=== PATIENT | male | born 1945 | race Caucasian/White ===

== ENCOUNTER → 2016-11-28 | Outpatient (CLI) | payer MEDICARE ==
[~2016-11-28] MED LIST: AMIO20TA PO; AMIO400T PO; ASPI1TAB PO; ASPI325T PO; ASPI81TA85 PO; CART120C PO; CART240C PO; CRES40TA PO; DOXY10CA PO; ELIQ5TAB PO; FISH100049 PO; HYDR-3713 PO; HYDR25TAB PO; KLOR1TAB69 PO; LEVO175T2 PO; LEVO200T4 PO; LIDO5DIS36 TD; LISI-538 PO; LISI10TA4 PO; LISI40TAB PO; LOPR1TAB6 PO; METO100T PO; METO50TA2 PO; NEXI40CA PO; OMEP20CA3 PO; POTA10CA PO; SOMA350T PO; VITA50003 PO; ZOLO100T PO
[2016-11-28 18:11] LABS: ALBUMIN 3.9 GM/DL (3.2-5.2); ALBUMIN/GLOBULIN RATIO 1.34 (1.00-1.93); BILIRUBIN,DIRECT 0.2 MG/DL (0.0-0.2); BILIRUBIN,TOTAL 0.6 MG/DL (0.2-1.0); TOTAL PROTEIN 6.8 GM/DL (6.4-8.2)
== END ==
LOC: M SMT 13:02
PROVIDERS: ATTEND Internal Medicine Cardiovascular Disease
DX: R06.00 Dyspnea, unspecified (principal); I48.91 Unspecified atrial fibrillation

== ENCOUNTER → 2017-03-09 | Outpatient (CLI) | payer MEDICARE ==
[~2017-03-09] MED LIST changes: -CART240C PO; +CART240C3 PO; +KEFL500C17 PO; -LIDO5DIS36 TD; +LIDO5DIS41 TD; -METO100T PO; +METO100T5 PO; -METO50TA2 PO; +METO50TA7 PO; +NORC1TAB4 PO; +VITA1CAP40 PO; -VITA50003 PO
[2017-03-09 18:15] LABS: INR 1.04
[2017-03-20 00:06] LABS: BENZODIAZEPINES, URINE SCREEN Negative ng/mL (Cutoff=200); METHADONE, URINE SCREEN Negative ng/mL (Cutoff=300); OPIATES, URINE Positive ng/mL (Cutoff=300); pH, URINE 5.4 (4.5-8.9)
== END ==
LOC: M SMT 13:28
PROVIDERS: ATTEND Physical Medicine & Rehabilitation
DX: Z01.812 Encounter for preprocedural laboratory examination (principal); M47.816 Spondylosis without myelopathy or radiculopathy, lumbar region; M51.36 Other intervertebral disc degeneration, lumbar region; M48.07 Spinal stenosis, lumbosacral region

== ENCOUNTER 2017-03-12 14:54 | Emergency (ER) | payer MEDICARE ==
[~2017-03-12] VITALS: Ht 177.8 cm; Wt 122.7 kg
[~2017-03-12 14:54] MED LIST changes: -KEFL500C17 PO; -NORC1TAB4 PO
[2017-03-12] MEDS ORDERED: ADACEL/BOOSTRIX VACCINE (DIPHTH/PERTUSS/ACELL/TETANUS)0.5ML SYR (90715) IM ONE (15:15)
[2017-03-12] MEDS ORDERED: NORCO, ANEXSIA 5/325MG TABLET (HYDROcodone/ACETAMINOPHEN) PO ONE (15:15)
[2017-03-12] MEDS ORDERED: LIDOCAINE 1% MDV 20ML VIAL IM ONE ×2 (15:30)
[2017-03-12] MEDS ORDERED: CEPHALEXIN 500 MG CAP PO ONE (15:30)
--- NOTE | 2017-03-12 15:46 | REP ---
Left hand series: Four views. History: Table saw injury. Findings: Four views of the left hand demonstrate an open somewhat comminuted fracture of the middle phalanx of the ring finger with soft tissue swelling and irregularity. There is also bone missing from the distal tuft of the small finger consistent with an open fracture of this digit. A small chip fracture and radiolucent defect is seen in the middle phalanx of the long finger along its ulnar aspect. There are numerous opaque debris fragments in or on the skin of the proximal phalanges of the ring and small finger. There is also a triangular metallic foreign body in the dorsal soft tissues between the distal first and second metacarpals. Impression: Open fractures of the middle phalanges of the long and ring finger and the distal phalanx of the small finger. Opaque debris in or on the skin of the ring and small fingers. Possibly old metallic foreign body at the dorsal aspect of the web space between the first and second digits. Signed by Srinivasa Dunne MD 03/12/2017 04:58 P
[2017-03-12] MEDS ORDERED: KEFL500C17 PO (17:29)
[2017-03-12] MEDS ORDERED: NORC1TAB4 PO (17:29)
[2017-03-12 17:45] VITALS: BP 113/60
== END 2017-03-12 17:50 | disposition home or self-care (01) ==
LOC: M ED 14:54
DX: S61.211A Laceration without foreign body of left index finger without damage to nail, initial encounter (principal); S61.213A Laceration without foreign body of left middle finger without damage to nail, initial encounter; S61.215A Laceration without foreign body of left ring finger without damage to nail, initial encounter; S61.217A Laceration without foreign body of left little finger without damage to nail, initial encounter; S62.620B Displaced fracture of middle phalanx of right index finger, initial encounter for open fracture; S62.621B Displaced fracture of middle phalanx of left index finger, initial encounter for open fracture; S62.637B Displaced fracture of distal phalanx of left little finger, initial encounter for open fracture; S66.193A Other injury of flexor muscle, fascia and tendon of left middle finger at wrist and hand level, initial encounter; S66.195A Other injury of flexor muscle, fascia and tendon of left ring finger at wrist and hand level, initial encounter; W27.0XXA Contact with workbench tool, initial encounter; Y92.019 Unspecified place in single-family (private) house as the place of occurrence of the external cause; Y93.H3 Activity, building and construction; Y99.8 Other external cause status; I25.10 Atherosclerotic heart disease of native coronary artery without angina pectoris; Z79.899 Other long term (current) drug therapy; Z79.82 Long term (current) use of aspirin; Z88.8 Allergy status to other drugs, medicaments and biological substances

== ENCOUNTER → 2017-05-14 | Outpatient (REF) | payer MEDICARE ==
[~2017-05-14] MED LIST changes: +KEFL500C17 PO; +NORC1TAB4 PO
== END ==
LOC: M LAB REF 18:04
DX: T81.4XXD Infection following a procedure, subsequent encounter (principal); Y82.9 Unspecified medical devices associated with adverse incidents

== ENCOUNTER → 2017-11-08 | Outpatient (CLI) | payer MEDICARE | LOC: M RAD 16:20 | DX: N28.1 Cyst of kidney, acquired (principal) | CPT/HCPCS: 76775 ==

== ENCOUNTER → 2018-12-05 | Outpatient (CLI) | payer MEDICARE ==
[~2018-12-05] MED LIST changes: +AMIO200T PO; +AMIO200T22 PO; -AMIO20TA PO; -AMIO400T PO; +AMIO400T7 PO; +ASPI-1 PO; -ASPI1TAB PO; -ASPI325T PO; +ASPI81TA26 PO; +CLON0.5T8 PO; -DOXY10CA PO; +DOXY1TAB33 PO; +HYDR-2541 PO; -HYDR25TAB PO; +KLOR10TA76 PO; +LEVA750T7 PO; +LEVO200T31 PO; +LISI40TA52 PO; -LISI40TAB PO; +METO1TAB7 PO; -NORC1TAB4 PO; +NORC1TAB7 PO; +PANT40TA3 PO; +PERCOCET PO; -POTA10CA PO; +SPIR-10 PO; +SUCR1TA PO; -VITA1CAP40 PO; +VITA50005 PO
[2018-12-05 17:23] LABS: ALBUMIN 3.4 GM/DL (3.2-5.2); BILIRUBIN,DIRECT 0.8 MG/DL (0.0-0.2); BILIRUBIN,TOTAL 1.9 MG/DL (0.2-1.0); CALCIUM LEVEL 8.9 MG/DL (8.8-10.2); CREATININE FOR GFR 1.35 MG/DL (0.70-1.30); POTASSIUM SERUM 4.2 MEQ/L (3.5-5.1); TOTAL PROTEIN 6.4 GM/DL (6.4-8.2)
[2018-12-05 17:27] LABS: BASO % 0.2 % (0.0-1.0); HEMOGLOBIN 14.1 g/dl (13.5-17.5); LYMPH # 0.7 10^3/uL (1.5-4.5); LYMPH % 6.7 % (24.0-44.0); MEAN CORPUSCULAR HEMOGLOBIN 29.1 pg (27.0-33.0); MEAN CORPUSCULAR HGB CONC 32.8 g/dl (32.0-36.5); MEAN CORPUSCULAR VOLUME 88.8 fl (80.0-96.0); MONO # 0.7 10^3/uL (0.0-0.8); NEUTROPHILS # 8.4 10^3/uL (1.8-7.7); NEUTROPHILS % 85.6 % (36.0-66.0); PLATELET COUNT, AUTOMATED 197 10^3/uL (150-450); RED BLOOD COUNT 4.84 10^6/uL (4.30-6.10); WHITE BLOOD COUNT 9.8 10^3/uL (4.0-10.0)
== END ==
LOC: M SMT 15:14
PROVIDERS: ATTEND Internal Medicine Cardiovascular Disease
DX: R10.9 Unspecified abdominal pain (principal)

== ENCOUNTER → 2018-12-05 | Outpatient (CLI) | payer MEDICARE ==
--- NOTE | 2018-12-05 11:53 | REP ---
Clinical: Chest and abdominal pain. Rule out pneumoperitoneum . Comparison: 11/28/2016 . Findings: The mediastinum and cardiac silhouette are stable and within normal limits for portable technique. Evidence for sternotomy and CABG. The lung ramirez are clear without acute consolidation, effusion, or pneumothorax. Skeletal structures are intact. Impression: No acute cardiopulmonary process appreciated. Electronically Signed by Alberto Toledo MD 12/05/2018 11:44 A
== END ==
LOC: M RAD 11:04
PROVIDERS: ATTEND Surgery
DX: R10.9 Unspecified abdominal pain (principal)

== ENCOUNTER → 2018-12-17 | Outpatient (CLI) | payer MEDICARE ==
[~2018-12-17] MED LIST changes: -OMEP20CA3 PO; +OMEP20CA4 PO
[2018-12-17 12:45] LABS: ALBUMIN 3.2 GM/DL (3.2-5.2); ALT/SGPT 56 U/L (12-78); AMYLASE 115 U/L (25-115); BILIRUBIN,TOTAL 0.6 MG/DL (0.2-1.0); BLOOD UREA NITROGEN 13 MG/DL (7-18); CALCIUM LEVEL 8.8 MG/DL (8.8-10.2); CARBON DIOXIDE LEVEL 30 MEQ/L (21-32); CHLORIDE LEVEL 105 MEQ/L (98-107); CREATININE FOR GFR 1.09 MG/DL (0.70-1.30); GLOMERULAR FILTRATION RATE > 60.0 (>42); GLUCOSE, FASTING 83 MG/DL (70-100); LIPASE 138 U/L (73-393); POTASSIUM SERUM 4.9 MEQ/L (3.5-5.1); SODIUM LEVEL 139 MEQ/L (136-145); TOTAL PROTEIN 6.3 GM/DL (6.4-8.2)
== END ==
LOC: M LAB 11:06
PROVIDERS: ATTEND Surgery
DX: Z98.84 Bariatric surgery status (principal); K28.1 Acute gastrojejunal ulcer with perforation; K85.10 Biliary acute pancreatitis without necrosis or infection

== ENCOUNTER → 2018-12-26 | Outpatient (CLI) | payer MEDICARE ==
--- NOTE | 2018-12-26 10:52 | REP ---
RIGHT UPPER QUADRANT ULTRASOUND: Real-time sonographic evaluation of the right upper quadrant performed. Gallbladder demonstrates no evidence of intraluminal sludge or calculi, wall thickening or pericholecystic fluid. There is no intrahepatic biliary dilatation. The common bile duct is slightly dilated at 8 mm. There is no gross mass of the liver or pancreas. The pancreas is not optimally visualized due to overlying bowel gas. Right kidney demonstrates no hydronephrosis with normal size 11.7 cm in length. A cyst in the upper pole of the right kidney measures 4 cm in diameter. There is a small amount of perihepatic fluid IMPRESSION: No gallstones seen in the gallbladder, with no gallbladder wall thickening. There is slight dilatation of the common bile duct at 8 mm. Mild perihepatic fluid. Right renal cyst. Electronically Signed by Simeon Mckeon MD 12/29/2018 07:06 P
== END ==
LOC: M RAD 09:19
PROVIDERS: ATTEND Surgery
DX: N28.1 Cyst of kidney, acquired (principal); R10.9 Unspecified abdominal pain; K85.10 Biliary acute pancreatitis without necrosis or infection

== ENCOUNTER 2019-01-22 08:44 | Day surgery (SDC) | payer MEDICARE ==
[~2019-01-22] VITALS: Ht 175.3 cm; Wt 78.0 kg
[~2019-01-22 08:44] MED LIST changes: +LIDOCAINE 2% INJ 100 MG/5 ML SDV (FOR ANES.) As Ordered ONE; +NS 1,000 ML IV ONE; +PROPOFOL 200 MG/20 ML VIAL As Ordered ONE
[2019-01-22] MEDS ORDERED: fentaNYL 100 MCG/2 ML INJECTION (J3010) As Ordered ONE (09:14)
--- NOTE | 2019-01-22 09:35 | ROOR ---
Patient Name: Guilherme Harrison Procedure Date: 01/22/2019 9:13 AM Date of : 1945 Age: 73 Room: [facility] Gender: Male Note Status: Finalized Procedure: Upper GI endoscopy Indications: Follow-up of acute gastrojejunal ulcer Providers: Carmelo Dumont MD Referring MD: Donato Dowd MD Requesting Provider: Medicines: Monitored Anesthesia Care Complications: No immediate complications. Procedure: Pre-Anesthesia Assessment: - Prior to the procedure, a History and Physical was performed, and patient medications and allergies were reviewed. The patient is competent. The risks and benefits of the procedure and the sedation options and risks were discussed with the patient. All questions were answered and informed consent was obtained. Patient identification and proposed procedure were verified by the physician, the nurse and the anesthesiologist in the endoscopy suite. Mental Status Examination: alert and oriented. Airway Examination: normal oropharyngeal airway and neck mobility. Respiratory Examination: clear to auscultation. CV Examination: irregularly irregular rate and rhythm. Prophylactic Antibiotics: The patient does not require prophylactic antibiotics. Prior Anticoagulants: The patient has taken Eliquis (apixaban), last dose was 3 days prior to procedure. ASA Grade Assessment: III - A patient with severe systemic disease. After reviewing the risks and benefits, the patient was deemed in satisfactory condition to undergo the procedure. The anesthesia plan was to use monitored anesthesia care (MAC). Immediately prior to administration of medications, the patient was re-assessed for adequacy to receive sedatives. The heart rate, respiratory rate, oxygen saturations, blood pressure, adequacy of pulmonary ventilation, and response to care were monitored throughout the procedure. The physical status of the patient was re-assessed after the procedure. The Endoscope was introduced through the mouth, and advanced to the efferent jejunal loop. The upper GI endoscopy was accomplished without difficulty. The patient tolerated the procedure well. Findings: The examined esophagus was normal. healthy stomach, slightly enlarged pouch, helathy mucosa few bernice from gastrojejunal anastomosis without signs of gastritis/jejunitis or ulcer. site of ulcer perforation repair noted with a silk suture in place. healing mucosa, slight leftover chronic inflammation without residual ulcer noted. Impression: - Normal esophagus. - No specimens collected. Recommendation: - Discharge patient to home (ambulatory). - Resume Eliquis (apixaban) at prior dose today. - Use Protonix (pantoprazole) 40 mg PO daily indefinitely. Carmelo Dumont MD Carmelo Dumont MD 01/22/2019 9:34:45 AM Electronically signed by Carmelo Dumont MD Number of Addenda: 0 Note Initiated On: 01/22/2019 9:13 AM Estimated Blood Loss: Estimated blood loss: none.
[2019-01-22 09:50] VITALS: BP 144/72
== END 2019-01-22 10:05 | disposition home or self-care (01) ==
LOC: M OPP 08:44
PROVIDERS: ATTEND Surgery
DX: K28.3 Acute gastrojejunal ulcer without hemorrhage or perforation (principal); Z98.84 Bariatric surgery status; Z79.899 Other long term (current) drug therapy; Z88.8 Allergy status to other drugs, medicaments and biological substances
CPT/HCPCS: 43235; J3010

== ENCOUNTER → 2019-11-18 | Outpatient (CLI) | payer MEDICARE ==
[~2019-11-18] MED LIST changes: +CLON0.5T2 PO; -CLON0.5T8 PO; -LIDOCAINE 2% INJ 100 MG/5 ML SDV (FOR ANES.) As Ordered ONE; -NS 1,000 ML IV ONE; +OMEP1CAP73 PO; -OMEP20CA4 PO; -PROPOFOL 200 MG/20 ML VIAL As Ordered ONE
[2019-11-18 18:08] LABS: ALBUMIN 3.4 GM/DL (3.2-5.2); BILIRUBIN,TOTAL 0.6 MG/DL (0.2-1.0); CALCIUM LEVEL 8.7 MG/DL (8.8-10.2); CREATININE FOR GFR 1.25 MG/DL (0.70-1.30); GLOMERULAR FILTRATION RATE 59.9 (>42); POTASSIUM SERUM 4.3 MEQ/L (3.5-5.1); THYROID STIMULATING HORMONE 3.54 uIU/ML (0.358-3.740); TOTAL PROTEIN 6.3 GM/DL (6.4-8.2)
[2019-11-18 18:09] LABS: CREATININE, URINE 54.8 MG/DL; MALB URINE SIEMENS 7.6 MG/L; MAU/CREAT RATIO 13.8 MCG/MG (0.0-30.0)
== END ==
LOC: M WUC 11:41
PROVIDERS: ATTEND Family Medicine
DX: E03.9 Hypothyroidism, unspecified (principal); E78.5 Hyperlipidemia, unspecified; I10 Essential (primary) hypertension

== ENCOUNTER → 2020-09-24 | Outpatient (CLI) | payer MEDICARE ==
[~2020-09-24] MED LIST changes: -AMIO200T PO; +AMIO200T3 PO; -ASPI81TA85 PO; +ASPI81TA86 PO; -LISI-538 PO; +LISI10TA22 PO; -LISI10TA4 PO; +LISI20TA33 PO; +PANT40TA29 PO; -PANT40TA3 PO
[2020-09-24 13:31] LABS: CREATININE FOR GFR 1.29 MG/DL (0.70-1.30); GLOMERULAR FILTRATION RATE 57.6 (>42)
== END ==
LOC: M PLALAB 09:00
PROVIDERS: ATTEND Physical Medicine & Rehabilitation
DX: M51.36 Other intervertebral disc degeneration, lumbar region (principal)

== ENCOUNTER → 2020-10-26 | Outpatient (CLI) | payer MEDICARE ==
--- NOTE | 2020-10-26 16:18 | REP ---
INDICATION: DD LUMBAR REGION. COMPARISON: Comparison MRI study is from December 07, 2014.. TECHNIQUE: Sagittal and axial T1 and T2-weighted scans are acquired in the usual fashion with and without fat saturation. Sequences include spin echo, turbo spin-echo, and STIR imaging sequences. Post gadolinium enhanced imaging is acquired in the axial and sagittal imaging planes. 8.5 mL of intravenous ProHance is administered. FINDINGS: There is straightening of the normal lumbar lordosis. Lumbar vertebral body heights are preserved. There is diffuse degenerative disc disease as previously observed. The tip of the conus medullaris is normal in position and appearance at the top of L1. Patient is status post laminectomy at L4. There are renal cortical cysts noted on T2 weighted scans bilaterally including a fairly large cyst partially visualized on the left. No other extra vertebral abnormality is observed. Axial and sagittal images taken at the L1-L2 level demonstrate diffuse disc bulging indenting the ventral margin of the thecal sac. There is bilateral facet and mild ligamentum flavum hypertrophy which indents the thecal sac from a dorsal lateral aspect on both sides. Overall canal size is borderline. These findings are somewhat more pronounced than they were on the 2015 prior study. No focal disc protrusion. At L2-3, there is mild to moderate central canal stenosis due to diffuse disc bulging, ligamentum flavum and facet hypertrophy, and developmentally somewhat short pedicles. This is definitely more pronounced than on the prior study due to progressive facet hypertrophy and progressive degenerative disc disease at L2-3. At L3-4, there is moderate to marked central canal stenosis due to the same factors of diffuse disc bulging, and osteoarthritic facet hypertrophy. Mild ligamentum flavum hypertrophy contributes period is T2 weighted CSF signal is effaced from the thecal sac at the L3-4 level sagittal T2 weighted scans suggest a contribution of a small left facet synovial cyst as well. The midline AP dimension of the thecal sac at the L3-4 level is only 2.7 mm. No neural foraminal impingement is seen. The L3-4 spinal stenosis is somewhat more prominent than on the 2015 study. At L4-L5, there is post laminectomy enlargement of the thecal sac. There is diffuse disc bulging. No spinal stenosis is seen. No recurrent or residual disc protrusion is seen but there is some posterior osteophytic ridging which indents the ventral margin of the thecal sac. Mild bilateral foraminal narrowing. At L5-S1, there is mild diffuse disc bulging. Facet hypertrophy is noted bilaterally. A small right posterior disc protrusion is seen unchanged from the 2015 study producing minimal thecal sac narrowing. Postcontrast images show no suspicious or significant contrast enhancement. 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 Status post L4 laminectomy. Moderate to marked central canal stenosis at L3-4 and mild to moderate central canal stenosis at L2-3. Findings are more pronounced than on the 2015 prior study. <Electronically signed by Daniel Dunne > 10/26/20 [id number]
== END ==
LOC: M PLARAD 13:11
PROVIDERS: ATTEND Physical Medicine & Rehabilitation
DX: M51.26 Other intervertebral disc displacement, lumbar region (principal)

== ENCOUNTER → 2020-12-22 | Outpatient (CLI) | payer MEDICARE ==
[2020-12-22 13:49] LABS: PLATELET COUNT, AUTOMATED 214 10^3/uL (150-450)
[2020-12-22 14:47] LABS: INR 1.13; PARTIAL THROMBOPLASTIN TIME 29.7 SECONDS (24.2-38.5); PROTHROMBIN TIME 14.8 SECONDS (12.5-14.3)
== END ==
LOC: M PLALAB 11:02
PROVIDERS: ATTEND Physician Assistant
DX: M51.36 Other intervertebral disc degeneration, lumbar region (principal); Z79.01 Long term (current) use of anticoagulants

== ENCOUNTER → 2021-11-02 | Outpatient (REF) | payer MEDICARE ==
[~2021-11-02] MED LIST changes: -AMIO200T3 PO; +AMIO200T49 PO; -KLOR10TA76 PO; +POTA-136 PO
[2021-11-02 17:03] LABS: BASO % 0.6 % (0.0-1.0); EOS # 0.2 10^3/uL (0.0-0.5); EOS % 2.9 % (0.0-3.0); HEMATOCRIT 39.7 % (42.0-52.0); HEMOGLOBIN 12.4 g/dl (13.5-17.5); LYMPH # 1.2 10^3/uL (1.5-5.0); LYMPH % 22.3 % (24.0-44.0); MEAN CORPUSCULAR HEMOGLOBIN 25.5 pg (27.0-33.0); MEAN CORPUSCULAR HGB CONC 31.2 g/dl (32.0-36.5); MEAN CORPUSCULAR VOLUME 81.7 fl (80.0-96.0); MONO # 0.5 10^3/uL (0.0-0.8); MONO % 9.4 % (2.0-8.0); NEUTROPHILS # 3.4 10^3/uL (1.5-8.5); NEUTROPHILS % 64.6 % (36.0-66.0); PLATELET COUNT, AUTOMATED 271 10^3/uL (150-450); RED BLOOD COUNT 4.86 10^6/uL (4.30-6.10); WHITE BLOOD COUNT 5.2 10^3/uL (4.0-10.0)
[2021-11-02 17:37] LABS: ALBUMIN 3.9 GM/DL (3.2-5.2); ALT/SGPT 27 U/L (12-78); BILIRUBIN,TOTAL 0.7 MG/DL (0.2-1.0); BLOOD UREA NITROGEN 25 MG/DL (7-18); CALCIUM LEVEL 9.8 MG/DL (8.8-10.2); CARBON DIOXIDE LEVEL 29 MEQ/L (21-32); CHLORIDE LEVEL 109 MEQ/L (98-107); CHOLESTEROL LEVEL 120 MG/DL (<200); CHOLESTEROL RISK RATIO 1.764 (<5); CREATININE FOR GFR 1.54 MG/DL (0.70-1.30); GLOMERULAR FILTRATION RATE 46.9 (>42); GLUCOSE, FASTING 112 MG/DL (70-100); HDL CHOLESTEROL 68 MG/DL (>40); LDL CHOLESTEROL 41 MG/DL (<100); MAGNESIUM LEVEL 2.4 MG/DL (1.8-2.4); NON-HDL-C 52 MG/DL; POTASSIUM SERUM 5.4 MEQ/L (3.5-5.1); PROSTATIC SPECIFIC AG MONITOR < 0.01 NG/ML (< 4.00); SODIUM LEVEL 141 MEQ/L (136-145); THYROID STIMULATING HORMONE 0.151 uIU/ML (0.358-3.740); TRIGLYCERIDES LEVEL 54 MG/DL (<150)
== END ==
LOC: M SFHCADAM 15:02
PROVIDERS: ATTEND Physician Assistant
DX: E03.9 Hypothyroidism, unspecified (principal); K52.9 Noninfective gastroenteritis and colitis, unspecified; I48.91 Unspecified atrial fibrillation; E78.00 Pure hypercholesterolemia, unspecified; F32.1 Major depressive disorder, single episode, moderate; I25.10 Atherosclerotic heart disease of native coronary artery without angina pectoris; Z85.46 Personal history of malignant neoplasm of prostate

== ENCOUNTER → 2021-11-04 | Outpatient (REF) | payer MEDICARE | LOC: M SFHCADAM 17:16 | PROVIDERS: ATTEND Physician Assistant | DX: K52.9 Noninfective gastroenteritis and colitis, unspecified (principal) ==

== ENCOUNTER → 2021-12-07 | Outpatient (REF) | payer MEDICARE ==
[2021-12-07 13:12] LABS: PERCENT SATURATION 8.4 % (19.7-50.0)
[2021-12-07 13:24] LABS: HEMOGLOBIN A1c 5.8 %
[2021-12-07 13:29] LABS: FOLATE 15.4 NG/ML
== END ==
LOC: M SFHCADAM 09:39
PROVIDERS: ATTEND Physician Assistant
DX: D64.9 Anemia, unspecified (principal); R73.9 Hyperglycemia, unspecified

== ENCOUNTER 2021-12-29 10:27 | Inpatient (IN) | payer MEDICARE ==
[~2021-12-29] VITALS: Ht 175.3 cm; Wt 87.0 kg
[2021-12-29] MEDS: METOPROLOL SUCC *XL* 25MG TAB (TopROL *XL*) PO SCH (09:00)
[2021-12-29] MEDS: LEVOTHYROXINE 150MCG TABLET (0.15MG) PO SCH (09:00)
[2021-12-29 11:23] LABS: BASO % 0.5 % (0.0-1.0); EOS # 0.1 10^3/uL (0.0-0.5); HEMATOCRIT 37.3 % (42.0-52.0); HEMOGLOBIN 11.4 g/dl (13.5-17.5); LYMPH # 1.2 10^3/uL (1.5-5.0); LYMPH % 19.5 % (24.0-44.0); MEAN CORPUSCULAR HEMOGLOBIN 25.4 pg (27.0-33.0); MEAN CORPUSCULAR HGB CONC 30.6 g/dl (32.0-36.5); MEAN CORPUSCULAR VOLUME 83.3 fl (80.0-96.0); MONO # 0.7 10^3/uL (0.0-0.8); MONO % 11.1 % (2.0-8.0); NEUTROPHILS % 66.7 % (36.0-66.0); PLATELET COUNT, AUTOMATED 219 10^3/uL (150-450); RED BLOOD COUNT 4.48 10^6/uL (4.30-6.10)
[2021-12-29 11:34] LABS: INR 1.09; PROTHROMBIN TIME 14.5 SECONDS (12.7-14.5)
[2021-12-29 11:35] LABS: PARTIAL THROMBOPLASTIN TIME 28.2 SECONDS (25.9-37.0)
[2021-12-29 11:39] LABS: CALCIUM LEVEL 9.1 MG/DL (8.8-10.2); CREATININE FOR GFR 1.37 MG/DL (0.70-1.30); GLOMERULAR FILTRATION RATE 53.6 (>42)
[2021-12-29] MEDS ORDERED: ISOVUE-370 76% 100ML VIAL As Ordered ONE ×2 (11:46→12:05)
[2021-12-29 13:33] LABS: RSV AMPLIFICATION NEGATIVE (NEGATIVE)
[2021-12-29] MEDS ORDERED: ACET-716 PO (13:54)
[2021-12-29] MEDS ORDERED: METO1TAB33 PO (13:54)
[2021-12-29] MEDS ORDERED: LEVO150T7 PO (14:18)
[2021-12-29] MEDS ORDERED: FLOM0.4C39 PO (14:18)
[2021-12-29] MEDS ORDERED: AMIO200T49 PO (14:24)
[2021-12-29] MEDS ORDERED: FINA5TAB2 PO (14:24)
[2021-12-29] MEDS ORDERED: PANT-23 PO (14:24)
[2021-12-29] MEDS ORDERED: VITA100093 PO (14:27)
[2021-12-29] MEDS ORDERED: PATIENT COMMENT (14:27)
[2021-12-29] MEDS ORDERED: HOME MED LIST COMPLETE! XX SCH (14:30)
[2021-12-29 15:59] LABS: CHOLESTEROL RISK RATIO 1.846 (<5)
[2021-12-29] MEDS: SERTRALINE 100 MG TAB PO SCH (16:10)
[2021-12-29] MEDS: PANTOPRAZOLE 40MG TAB (PROTONIX) PO SCH (16:10)
[2021-12-29] MEDS: FINASTERIDE 5MG TAB PO SCH (16:10)
[2021-12-29] MEDS: SPIRONOLACTONE 12.5MG PER 1/2 TABLET PO SCH (16:10)
[2021-12-29] MEDS: ROSUVASTATIN 10 MG TAB (CRESTOR) PO SCH (16:10)
[2021-12-29 20:40] VITALS: BP 195/81
[2021-12-29 20:45] VITALS: BP 177/68; O2SAT 98
[2021-12-29] MEDS: APIXABAN 5 MG TAB (ELIQUIS) PO SCH (21:29)
[2021-12-29] MEDS: TAMSULOSIN 0.4 MG CAP PO SCH (21:29)
[2021-12-29] MEDS: ACETAMINOPHEN TAB 650MG DOSE (2X325MG) PO PRN (21:30)
[2021-12-30] VITALS (8 sets, daily range): BP systolic 121–190; BP diastolic 58–85; O2SAT 98
[2021-12-30] MEDS: LEVOTHYROXINE 150MCG TABLET (0.15MG) PO SCH (06:23)
[2021-12-30] MEDS: METOPROLOL SUCC *XL* 25MG TAB (TopROL *XL*) PO SCH (08:45)
[2021-12-30] MEDS: SERTRALINE 100 MG TAB PO SCH (08:47)
[2021-12-30] MEDS: ASPIRIN 81MG ENTERIC TABLET PO SCH (08:47)
[2021-12-30] MEDS: PANTOPRAZOLE 40MG TAB (PROTONIX) PO SCH (08:47)
[2021-12-30] MEDS: FINASTERIDE 5MG TAB PO SCH (08:47)
[2021-12-30] MEDS: APIXABAN 5 MG TAB (ELIQUIS) PO SCH ×2 (08:47→20:54)
[2021-12-30] MEDS: ROSUVASTATIN 10 MG TAB (CRESTOR) PO SCH (08:47)
[2021-12-30] MEDS: SPIRONOLACTONE 12.5MG PER 1/2 TABLET PO SCH (08:47)
[2021-12-30] MEDS ORDERED: AMIODARONE 200 MG TAB (PACERONE) PO SCH (09:00)
[2021-12-30] MEDS: NS 1,000 ML IV SCH ×2 (10:56→18:03)
[2021-12-30] MEDS: TAMSULOSIN 0.4 MG CAP PO SCH (20:54)
[2021-12-30] MEDS: ACETAMINOPHEN TAB 650MG DOSE (2X325MG) PO PRN (22:30)
[2021-12-31] VITALS: BP 134/60
[2021-12-31 04:00] VITALS: BP 142/60
[2021-12-31] MEDS: LEVOTHYROXINE 150MCG TABLET (0.15MG) PO SCH (06:02)
[2021-12-31] MEDS: APIXABAN 5 MG TAB (ELIQUIS) PO SCH (08:38)
[2021-12-31] MEDS: PANTOPRAZOLE 40MG TAB (PROTONIX) PO SCH (08:39)
[2021-12-31] MEDS: SERTRALINE 100 MG TAB PO SCH (08:39)
[2021-12-31] MEDS: ACETAMINOPHEN TAB 650MG DOSE (2X325MG) PO PRN (08:39)
[2021-12-31 08:41] VITALS: BP 172/80
[2021-12-31] MEDS: ROSUVASTATIN 10 MG TAB (CRESTOR) PO SCH (08:41)
[2021-12-31] MEDS: FINASTERIDE 5MG TAB PO SCH (08:41)
[2021-12-31] MEDS: ASPIRIN 81MG ENTERIC TABLET PO SCH (08:41)
[2021-12-31] MEDS: SPIRONOLACTONE 12.5MG PER 1/2 TABLET PO SCH (08:41)
[2021-12-31] MEDS: METOPROLOL SUCC *XL* 25MG TAB (TopROL *XL*) PO SCH (08:42)
[2021-12-31] MEDS ORDERED: amLODIPine 5 MG TAB PO SCH (09:00)
[2021-12-31 09:51] VITALS: BP 150/78
[2021-12-31] MEDS ORDERED: ASPI-551 PO (09:53)
[2021-12-31] MEDS ORDERED: AMLO1TAB24 PO (09:53)
== END 2021-12-31 12:13 | disposition home or self-care (01) | DRG 66 ==
LOC: M ED 10:27 → M ED INP 14:40 → ENRESERV 15:58 → M PCU 20:41
PROVIDERS: ADMIT Family Medicine; ATTEND Family Medicine
DX: I63.512 Cerebral infarction due to unspecified occlusion or stenosis of left middle cerebral artery (principal); I48.91 Unspecified atrial fibrillation; E03.9 Hypothyroidism, unspecified; R00.1 Bradycardia, unspecified; I10 Essential (primary) hypertension; F32.A Depression, unspecified; E78.5 Hyperlipidemia, unspecified; Z95.1 Presence of aortocoronary bypass graft; R47.01 Aphasia; H53.47 Heteronymous bilateral field defects; Z79.890 Hormone replacement therapy; Z79.899 Other long term (current) drug therapy; Z79.01 Long term (current) use of anticoagulants; Z88.6 Allergy status to analgesic agent

== ENCOUNTER → 2022-01-05 | Outpatient (CLI) | payer MEDICARE ==
[~2022-01-05] MED LIST changes: +ACET-716 PO; +AMLO1TAB24 PO; +ASPI-551 PO; +FINA5TAB2 PO; +FLOM0.4C39 PO; +ISOVUE-300 61% 5ML SYRINGE As Ordered ONE; +LEVO150T7 PO; +LIDOCAINE 1% MDV 20ML VIAL As Ordered ONE; +METO1TAB33 PO; +PANT-23 PO; +PATIENT COMMENT; +VITA100093 PO; +methylPREDNISolone SUSP 40MG/ML 1ML VIAL (DEPO MEDROL) As Ordered ONE
== END ==
LOC: M RADPRO 14:11
PROVIDERS: ATTEND Physician Assistant
DX: M19.011 Primary osteoarthritis, right shoulder (principal)

== ENCOUNTER → 2022-01-31 | Outpatient (REF) | payer MEDICARE ==
[~2022-01-31] MED LIST changes: -ISOVUE-300 61% 5ML SYRINGE As Ordered ONE; -LIDOCAINE 1% MDV 20ML VIAL As Ordered ONE; -methylPREDNISolone SUSP 40MG/ML 1ML VIAL (DEPO MEDROL) As Ordered ONE
[2022-01-31 13:48] LABS: HEMATOCRIT 42.6 % (42.0-52.0); HEMOGLOBIN 13.2 g/dl (13.5-17.5); MEAN CORPUSCULAR HEMOGLOBIN 26.7 pg (27.0-33.0); MEAN CORPUSCULAR VOLUME 86.1 fl (80.0-96.0); PLATELET COUNT, AUTOMATED 214 10^3/uL (150-450); RED BLOOD COUNT 4.95 10^6/uL (4.30-6.10)
[2022-01-31 14:09] LABS: CALCIUM LEVEL 9.5 MG/DL (8.8-10.2); CREATININE FOR GFR 1.26 MG/DL (0.70-1.30); FREE T4 1.24 NG/DL (0.76-1.46); GLOMERULAR FILTRATION RATE 59.1 (>42); POTASSIUM SERUM 4.4 MEQ/L (3.5-5.1); THYROID STIMULATING HORMONE 0.611 uIU/ML (0.358-3.740)
== END ==
LOC: M SFHCADAM 10:45
PROVIDERS: ATTEND Physician Assistant
DX: E03.9 Hypothyroidism, unspecified (principal); D50.9 Iron deficiency anemia, unspecified

== ENCOUNTER 2022-10-23 13:32 | Emergency (ER) | payer MEDICARE ==
[~2022-10-23] VITALS: Ht 175.3 cm; Wt 89.9 kg
[2022-10-23 15:17] LABS: BASO % 0.5 % (0.0-1.0); EOS # 0.3 10^3/uL (0.0-0.5); EOS % 4.6 % (0.0-3.0); HEMATOCRIT 43.1 % (42.0-52.0); HEMOGLOBIN 13.6 g/dl (13.5-17.5); LYMPH # 0.9 10^3/uL (1.5-5.0); LYMPH % 15.8 % (24.0-44.0); MEAN CORPUSCULAR HEMOGLOBIN 29.7 pg (27.0-33.0); MEAN CORPUSCULAR HGB CONC 31.6 g/dl (32.0-36.5); MEAN CORPUSCULAR VOLUME 94.1 fl (80.0-96.0); MONO # 0.4 10^3/uL (0.0-0.8); MONO % 7.1 % (2.0-8.0); NEUTROPHILS % 71.6 % (36.0-66.0); PLATELET COUNT, AUTOMATED 205 10^3/uL (150-450); RED BLOOD COUNT 4.58 10^6/uL (4.30-6.10); WHITE BLOOD COUNT 5.6 10^3/uL (4.0-10.0)
[2022-10-23 15:51] LABS: ETHYL ALCOHOL (ETHANOL) < 0.003 % (0.000-0.010)
[2022-10-23 15:56] LABS: INR 1.08; PARTIAL THROMBOPLASTIN TIME 28.9 SECONDS (24.8-34.2); PROTHROMBIN TIME 14.2 SECONDS (12.5-14.5); THYROID STIMULATING HORMONE 0.418 uIU/ML (0.55-4.78)
[2022-10-23 15:59] LABS: ALBUMIN 3.7 G/DL (3.2-5.2); ALKALINE PHOSPHATASE 100 U/L (46-116); ALT/SGPT 17 U/L (7.0-40); AST/SGOT 44 U/L (<34); BILIRUBIN,DIRECT 0.1 MG/DL (<0.4); BILIRUBIN,TOTAL 0.4 MG/DL (0.3-1.2); BLOOD UREA NITROGEN 14 MG/DL (9-23); CALCIUM LEVEL 8.9 MG/DL (8.3-10.6); CARBON DIOXIDE LEVEL 25 MMOL/L (20-31); CHLORIDE LEVEL 107 MMOL/L (98-107); CK-MB VALUE MASS 1.7 NG/ML (<3.6); CPK CREATINE PHOSPHOKINASE 81 U/L (46-171); CREATININE FOR GFR 0.92 MG/DL (0.70-1.30); GLOMERULAR FILTRATION RATE > 60.0 (>42); GLUCOSE, FASTING 96 MG/DL (74-106); LIPASE 20 U/L (12-53); MB/CK RELATIVE INDEX 2.09 (< OR =4); POTASSIUM SERUM 5.8 MMOL/L (3.5-5.1); SODIUM LEVEL 138 MMOL/L (136-145); TOTAL PROTEIN 6.9 G/DL (5.7-8.2)
[2022-10-23 16:21] LABS: FREE T4 1.08 NG/DL (0.89-1.76)
[2022-10-23 16:32] LABS: RSV AMPLIFICATION NEGATIVE (NEGATIVE)
[2022-10-23 16:39] LABS: AMPHETAMINES LEVEL URINE NEGATIVE (NEGATIVE); BARBITURATES URINE NEGATIVE (NEGATIVE); BENZODIAZEPINES URINE NEGATIVE (NEGATIVE); COCAINE METABOLITE URINE NEGATIVE (NEGATIVE); METHADONE URINE NEGATIVE (NEGATIVE); PHENCYCLIDINE URINE NEGATIVE (NEGATIVE)
[2022-10-23 16:40] LABS: CANNABINOIDS URINE NEGATIVE (NEGATIVE); OPIATES URINE POSITIVE (NEGATIVE)
[2022-10-23 17:30] VITALS: BP 158/94
[2022-10-23 17:52] LABS: CK-MB VALUE MASS 1.6 NG/ML (<3.6); MB/CK RELATIVE INDEX 1.92 (< OR =4)
== END 2022-10-23 17:45 | disposition left against medical advice (07) ==
LOC: M ED 13:32
DX: I48.91 Unspecified atrial fibrillation (principal); I10 Essential (primary) hypertension; K21.9 Gastro-esophageal reflux disease without esophagitis; N52.9 Male erectile dysfunction, unspecified; Z86.73 Personal history of transient ischemic attack (TIA), and cerebral infarction without residual deficits; Z98.84 Bariatric surgery status; Z88.6 Allergy status to analgesic agent; Z79.82 Long term (current) use of aspirin; Z79.899 Other long term (current) drug therapy

== ENCOUNTER 2022-11-28 06:12 | Day surgery (SDC) | payer MEDICARE ==
[~2022-11-28] VITALS: Ht 175.3 cm; Wt 91.3 kg
[2022-11-28] MEDS ORDERED: LIDO1PAD TOP (06:29)
[2022-11-28] MEDS ORDERED: METO1TAB7 PO (06:32)
[2022-11-28] MEDS ORDERED: LIDOCAINE 2% 100MG/5ML SDV (FOR ANES.) As Ordered ONE (07:10)
[2022-11-28] MEDS ORDERED: propofoL 200 MG/20 ML VIAL As Ordered ONE (07:10)
[2022-11-28 08:25] VITALS: BP 154/78; TEMP 97.7; O2SAT 98
== END 2022-11-28 08:26 | disposition home or self-care (01) ==
LOC: M SDC 06:12
PROVIDERS: ATTEND Internal Medicine Cardiovascular Disease
DX: I48.91 Unspecified atrial fibrillation (principal); I48.92 Unspecified atrial flutter; I25.10 Atherosclerotic heart disease of native coronary artery without angina pectoris; I25.2 Old myocardial infarction; I10 Essential (primary) hypertension; Z95.5 Presence of coronary angioplasty implant and graft; E03.9 Hypothyroidism, unspecified; E78.00 Pure hypercholesterolemia, unspecified; Z87.19 Personal history of other diseases of the digestive system; Z95.1 Presence of aortocoronary bypass graft; Z98.84 Bariatric surgery status; Z86.14 Personal history of Methicillin resistant Staphylococcus aureus infection; F41.9 Anxiety disorder, unspecified; F32.A Depression, unspecified; I69.398 Other sequelae of cerebral infarction; Z85.46 Personal history of malignant neoplasm of prostate; Z92.3 Personal history of irradiation; Z88.6 Allergy status to analgesic agent; Z79.899 Other long term (current) drug therapy; Z79.01 Long term (current) use of anticoagulants; Z79.82 Long term (current) use of aspirin; Z79.891 Long term (current) use of opiate analgesic; Z79.890 Hormone replacement therapy

== ENCOUNTER 2022-12-14 10:10 | Inpatient (IN) | payer MEDICARE ==
[~2022-12-14] VITALS: Ht 175.3 cm; Wt 86.4 kg
[~2022-12-14 10:10] MED LIST changes: +LIDO1PAD TOP
[2022-12-14] MEDS ORDERED: ONDANSETRON 4MG 2ML VIAL IV ONE (11:00)
[2022-12-14 11:25] LABS: BASO % 0.2 % (0.0-1.0); EOS % 0.3 % (0.0-3.0); HEMATOCRIT 44.2 % (42.0-52.0); HEMOGLOBIN 14.4 g/dl (13.5-17.5); LYMPH # 0.8 10^3/uL (1.5-5.0); LYMPH % 6.3 % (24.0-44.0); MEAN CORPUSCULAR HEMOGLOBIN 30.3 pg (27.0-33.0); MEAN CORPUSCULAR HGB CONC 32.6 g/dl (32.0-36.5); MEAN CORPUSCULAR VOLUME 92.9 fl (80.0-96.0); MONO % 7.9 % (2.0-8.0); NEUTROPHILS # 10.9 10^3/uL (1.5-8.5); NEUTROPHILS % 84.8 % (36.0-66.0); PLATELET COUNT, AUTOMATED 212 10^3/uL (150-450); RED BLOOD COUNT 4.76 10^6/uL (4.30-6.10); WHITE BLOOD COUNT 12.9 10^3/uL (4.0-10.0)
[2022-12-14] MEDS: MORPHINE 4 MG/ML 1ML VIAL IV PRN ×2 (12:00→13:23)
[2022-12-14 12:51] LABS: BLOOD UREA NITROGEN 23 MG/DL (9-23); CALCIUM LEVEL 9.2 MG/DL (8.3-10.6); CARBON DIOXIDE LEVEL 29 MMOL/L (20-31); CHLORIDE LEVEL 102 MMOL/L (98-107); CREATININE FOR GFR 1.07 MG/DL (0.70-1.30); FREE T4 1.76 NG/DL (0.89-1.76); GLOMERULAR FILTRATION RATE > 60.0 (>42); GLUCOSE, FASTING 130 MG/DL (74-106); POTASSIUM SERUM 3.9 MMOL/L (3.5-5.1); SODIUM LEVEL 137 MMOL/L (136-145); THYROID STIMULATING HORMONE 1.109 uIU/ML (0.55-4.78)
[2022-12-14] MEDS ORDERED: MED REC IN PROGRESS XX SCH (13:05)
[2022-12-14 18:20] VITALS: BP 158/88; TEMP 97; O2SAT 93
[2022-12-14] MEDS: KETOROLAC 30 MG/ML 1ML VIAL IV PRN (18:37)
[2022-12-14] MEDS ORDERED: HOME MED LIST COMPLETE! XX SCH (19:10)
[2022-12-14] MEDS: oxyCODONE 5MG TAB PO SCH (20:23)
[2022-12-14] MEDS: ACETAMINOPHEN TAB 650MG DOSE (2X325MG) PO PRN (20:25)
[2022-12-14 20:35] VITALS: BP 115/55; TEMP 98.1; O2SAT 96
[2022-12-14] MEDS ORDERED: MORPHINE 4 MG/ML 1ML VIAL IV ONE (23:30)
[2022-12-15] VITALS (8 sets, daily range): BP systolic 110–138; BP diastolic 54–71; TEMP 96.6–98.1; O2SAT 80–97
[2022-12-15] MEDS: KETOROLAC 30 MG/ML 1ML VIAL IV PRN ×4 (03:54→22:22)
[2022-12-15] MEDS ORDERED: MORPHINE 4 MG/ML 1ML VIAL IV ONE ×2 (06:00→11:30)
[2022-12-15 06:04] LABS: BASO % 0.3 % (0.0-1.0); EOS # 0.1 10^3/uL (0.0-0.5); EOS % 1.4 % (0.0-3.0); HEMATOCRIT 41.6 % (42.0-52.0); HEMOGLOBIN 13.7 g/dl (13.5-17.5); LYMPH # 0.8 10^3/uL (1.5-5.0); LYMPH % 7.6 % (24.0-44.0); MEAN CORPUSCULAR HEMOGLOBIN 30.2 pg (27.0-33.0); MEAN CORPUSCULAR HGB CONC 32.9 g/dl (32.0-36.5); MEAN CORPUSCULAR VOLUME 91.8 fl (80.0-96.0); MONO # 0.7 10^3/uL (0.0-0.8); MONO % 6.8 % (2.0-8.0); NEUTROPHILS # 8.3 10^3/uL (1.5-8.5); NEUTROPHILS % 83.5 % (36.0-66.0); PLATELET COUNT, AUTOMATED 172 10^3/uL (150-450); RED BLOOD COUNT 4.53 10^6/uL (4.30-6.10); WHITE BLOOD COUNT 9.9 10^3/uL (4.0-10.0)
[2022-12-15 06:21] LABS: BLOOD UREA NITROGEN 25 MG/DL (9-23); CALCIUM LEVEL 8.5 MG/DL (8.3-10.6); CARBON DIOXIDE LEVEL 29 MMOL/L (20-31); CHLORIDE LEVEL 102 MMOL/L (98-107); CREATININE FOR GFR 1.21 MG/DL (0.70-1.30); GLOMERULAR FILTRATION RATE > 60.0 (>42); GLUCOSE, FASTING 105 MG/DL (74-106); POTASSIUM SERUM 4.2 MMOL/L (3.5-5.1); SODIUM LEVEL 136 MMOL/L (136-145)
[2022-12-15] MEDS: LEVOTHYROXINE 150MCG TABLET (0.15MG) PO SCH (08:08)
[2022-12-15] MEDS: oxyCODONE 5MG TAB PO SCH ×2 (08:08→21:24)
[2022-12-15] MEDS: METOPROLOL SUCC (TopROL XL) 50MG **XL** TAB PO SCH (08:41)
[2022-12-15] MEDS: AMIODARONE 200 MG TAB (PACERONE) PO SCH (08:41)
[2022-12-15] MEDS ORDERED: ONDANSETRON 4MG 2ML VIAL As Ordered ONE (12:55)
[2022-12-15] MEDS ORDERED: MIDAZOLAM INJ 2MG/2ML VIAL As Ordered ONE (12:55)
[2022-12-15] MEDS ORDERED: propofoL 200 MG/20 ML VIAL As Ordered ONE (12:55)
[2022-12-15] MEDS ORDERED: LIDOCAINE 2% 100MG/5ML SDV (FOR ANES.) As Ordered ONE (12:55)
[2022-12-15] MEDS ORDERED: fentaNYL 100 MCG/2 ML INJECTION As Ordered ONE (12:55)
[2022-12-15] MEDS ORDERED: ROCURONIUM BROMIDE 50MG/5ML VIAL As Ordered ONE ×2 (12:55→18:40)
[2022-12-15] MEDS ORDERED: ACETAMINOPHEN 1000MG 100ML IV BAG As Ordered ONE (13:04)
[2022-12-15] MEDS ORDERED: dexmedeTOMIDine (4MCG/ML)200MCG/50ML BTL (PRECEDEX) As Ordered ONE (13:04)
[2022-12-15] MEDS: MORPHINE 4 MG/ML 1ML VIAL IV PRN (15:50)
[2022-12-15] MEDS ORDERED: ceFAZolin 2 GM/D5W 50 ML IV BAG As Ordered ONE (17:09)
[2022-12-15] MEDS ORDERED: TRANEXAMIC ACID 100 MG/ML 10ML VIAL As Ordered ONE (17:09)
[2022-12-15] MEDS ORDERED: SUGAMMADEX SODIUM 500 MG/5 ML VIAL (BRIDION) As Ordered ONE (17:55)
[2022-12-15] MEDS ORDERED: HYDROmorphone HCL 2MG/ML 1ML VIAL As Ordered ONE (17:57)
[2022-12-15] MEDS ORDERED: PHENYLephrine 500MCG 5ML (100MCG/ML) SYRINGE As Ordered ONE ×2 (18:22→18:56)
[2022-12-15] MEDS ORDERED: ONDANSETRON 4MG 2ML VIAL IV PRN (19:55)
[2022-12-15] MEDS: ROSUVASTATIN 10 MG TAB (CRESTOR) PO SCH (21:24)
[2022-12-15] MEDS: ceFAZolin SOD 2 GM in IV 1 EA IV SCH (21:24)
[2022-12-16 00:50] VITALS: BP 137/75; TEMP 96.8; O2SAT 95
[2022-12-16] MEDS: ACETAMINOPHEN TAB 650MG DOSE (2X325MG) PO PRN (01:02)
[2022-12-16] MEDS: MORPHINE 4 MG/ML 1ML VIAL IV PRN ×2 (01:03→05:16)
[2022-12-16 01:50] VITALS: BP 110/68; TEMP 96.8; O2SAT 97
[2022-12-16] MEDS: LEVOTHYROXINE 150MCG TABLET (0.15MG) PO SCH (05:15)
[2022-12-16] MEDS: ceFAZolin SOD 2 GM in IV 1 EA IV SCH (05:15)
[2022-12-16 06:00] VITALS: BP 116/70; TEMP 97; O2SAT 97
[2022-12-16 07:06] LABS: BASO % 0.1 % (0.0-1.0); EOS % 0.2 % (0.0-3.0); HEMATOCRIT 36.6 % (42.0-52.0); LYMPH # 0.5 10^3/uL (1.5-5.0); LYMPH % 4.3 % (24.0-44.0); MEAN CORPUSCULAR HEMOGLOBIN 30.2 pg (27.0-33.0); MEAN CORPUSCULAR HGB CONC 32.8 g/dl (32.0-36.5); MONO # 0.7 10^3/uL (0.0-0.8); MONO % 6.7 % (2.0-8.0); NEUTROPHILS # 9.3 10^3/uL (1.5-8.5); NEUTROPHILS % 87.9 % (36.0-66.0); PLATELET COUNT, AUTOMATED 160 10^3/uL (150-450); RED BLOOD COUNT 3.98 10^6/uL (4.30-6.10); WHITE BLOOD COUNT 10.5 10^3/uL (4.0-10.0)
[2022-12-16 07:29] LABS: BLOOD UREA NITROGEN 26 MG/DL (9-23); CALCIUM LEVEL 8.7 MG/DL (8.3-10.6); CARBON DIOXIDE LEVEL 30 MMOL/L (20-31); CHLORIDE LEVEL 101 MMOL/L (98-107); CREATININE FOR GFR 1.22 MG/DL (0.70-1.30); GLOMERULAR FILTRATION RATE > 60.0 (>42); GLUCOSE, FASTING 134 MG/DL (74-106); POTASSIUM SERUM 4.4 MMOL/L (3.5-5.1); SODIUM LEVEL 135 MMOL/L (136-145)
[2022-12-16] MEDS: AMIODARONE 200 MG TAB (PACERONE) PO SCH (08:20)
[2022-12-16] MEDS: METOPROLOL SUCC (TopROL XL) 50MG **XL** TAB PO SCH (08:20)
[2022-12-16] MEDS: oxyCODONE 5MG TAB PO SCH ×2 (08:21→20:03)
[2022-12-16] MEDS ORDERED: AMIODARONE 200 MG TAB (PACERONE) PO SCH (09:00)
[2022-12-16 10:00] VITALS: BP 124/65; TEMP 97.7; O2SAT 97
[2022-12-16] MEDS ORDERED: ACETAMINOPHEN TAB 650MG DOSE (2X325MG) PO PRN (10:15)
[2022-12-16] MEDS ORDERED: MIRALAX *UNIT DOSE* 17GM PACKET PO PRN (10:15)
[2022-12-16] MEDS: ASPIRIN 81MG ENTERIC TABLET PO SCH (10:55)
[2022-12-16] MEDS: SENOKOT S TAB PO SCH ×2 (10:56→20:02)
[2022-12-16] MEDS: FINASTERIDE 5MG TAB PO SCH (10:56)
[2022-12-16] MEDS: PANTOPRAZOLE 40MG TAB (PROTONIX) PO SCH (10:56)
[2022-12-16] MEDS: SERTRALINE 100 MG TAB PO SCH (10:56)
[2022-12-16] MEDS: ACETAMINOPHEN TAB 650MG DOSE (2X325MG) PO SCH ×3 (10:56→20:03)
[2022-12-16 14:00] VITALS: BP 124/60; TEMP 98.2; O2SAT 93
[2022-12-16] MEDS: KETOROLAC 30 MG/ML 1ML VIAL IV PRN (14:15)
[2022-12-16] MEDS: ROSUVASTATIN 10 MG TAB (CRESTOR) PO SCH (20:02)
[2022-12-16] MEDS: APIXABAN 5 MG TAB (ELIQUIS) PO SCH (20:02)
[2022-12-16 21:02] VITALS: BP 117/64; TEMP 97.3; O2SAT 95
[2022-12-17] MEDS: KETOROLAC 30 MG/ML 1ML VIAL IV PRN (02:26)
[2022-12-17] MEDS: LEVOTHYROXINE 150MCG TABLET (0.15MG) PO SCH (05:34)
[2022-12-17 05:35] VITALS: BP 121/70; TEMP 98.1; O2SAT 97
[2022-12-17 06:55] LABS: BASO % 0.3 % (0.0-1.0); EOS # 0.2 10^3/uL (0.0-0.5); EOS % 2.5 % (0.0-3.0); HEMATOCRIT 31.6 % (42.0-52.0); HEMOGLOBIN 10.4 g/dl (13.5-17.5); LYMPH # 0.9 10^3/uL (1.5-5.0); LYMPH % 13.6 % (24.0-44.0); MEAN CORPUSCULAR HEMOGLOBIN 29.7 pg (27.0-33.0); MEAN CORPUSCULAR HGB CONC 32.9 g/dl (32.0-36.5); MEAN CORPUSCULAR VOLUME 90.3 fl (80.0-96.0); MONO # 0.6 10^3/uL (0.0-0.8); MONO % 9.4 % (2.0-8.0); NEUTROPHILS # 4.7 10^3/uL (1.5-8.5); NEUTROPHILS % 73.7 % (36.0-66.0); PLATELET COUNT, AUTOMATED 153 10^3/uL (150-450); WHITE BLOOD COUNT 6.4 10^3/uL (4.0-10.0)
[2022-12-17 07:22] LABS: CALCIUM LEVEL 8.3 MG/DL (8.3-10.6); CREATININE FOR GFR 1.27 MG/DL (0.70-1.30); GLOMERULAR FILTRATION RATE 58.4 (>42); POTASSIUM SERUM 4.1 MMOL/L (3.5-5.1)
[2022-12-17] MEDS ORDERED: NORCO, ANEXSIA 5/325MG TABLET (HYDROcodone/ACETAMINOPHEN) PO PRN (07:45)
[2022-12-17] MEDS: PERCOCET 5MG/325MG TAB PO PRN ×2 (07:52→13:48)
[2022-12-17] MEDS: SERTRALINE 100 MG TAB PO SCH (08:37)
[2022-12-17] MEDS: SENOKOT S TAB PO SCH (08:37)
[2022-12-17] MEDS: APIXABAN 5 MG TAB (ELIQUIS) PO SCH (08:37)
[2022-12-17 08:38] VITALS: BP 121/70
[2022-12-17] MEDS: PANTOPRAZOLE 40MG TAB (PROTONIX) PO SCH (08:38)
[2022-12-17] MEDS: AMIODARONE 200 MG TAB (PACERONE) PO SCH (08:38)
[2022-12-17] MEDS: FINASTERIDE 5MG TAB PO SCH (08:38)
[2022-12-17] MEDS: ASPIRIN 81MG ENTERIC TABLET PO SCH (08:38)
[2022-12-17] MEDS: METOPROLOL SUCC (TopROL XL) 50MG **XL** TAB PO SCH (08:38)
[2022-12-17] MEDS: ACETAMINOPHEN TAB 650MG DOSE (2X325MG) PO SCH (08:39)
[2022-12-17] MEDS ORDERED: NAPROXEN 250 MG TAB PO SCH (09:00)
[2022-12-17] MEDS ORDERED: NAPR500T6 PO (10:24)
[2022-12-17] MEDS ORDERED: ACET-897 PO (10:24)
[2022-12-17] MEDS ORDERED: PERCOCET PO (10:24)
[2022-12-17] MEDS ORDERED: SENN-52 PO (10:24)
[2022-12-17] MEDS ORDERED: MIRA1POW3 PO (10:24)
== END 2022-12-17 14:52 | disposition home or self-care (01) | DRG 522 ==
LOC: M ED 10:10 → M ED INP 15:51 → ENRESERV 16:09 → M MSPAV 18:16
PROVIDERS: ADMIT Internal Medicine Nephrology; ATTEND Internal Medicine Nephrology
PROC: 0SRS0J9 Replacement of Left Hip Joint, Femoral Surface with Synthetic Substitute, Cemented, Open Approach (ICD-10-PCS; principal; 2022-12-15 13:30)
DX: S72.142A Displaced intertrochanteric fracture of left femur, initial encounter for closed fracture (principal); I48.19 Other persistent atrial fibrillation; I48.92 Unspecified atrial flutter; I25.10 Atherosclerotic heart disease of native coronary artery without angina pectoris; I11.9 Hypertensive heart disease without heart failure; E78.5 Hyperlipidemia, unspecified; E03.9 Hypothyroidism, unspecified; N40.0 Benign prostatic hyperplasia without lower urinary tract symptoms; M54.2 Cervicalgia; M54.50 Low back pain, unspecified; G89.29 Other chronic pain; D50.9 Iron deficiency anemia, unspecified; R55 Syncope and collapse; R19.7 Diarrhea, unspecified; I27.20 Pulmonary hypertension, unspecified; Z98.84 Bariatric surgery status; Z90.49 Acquired absence of other specified parts of digestive tract; Z95.5 Presence of coronary angioplasty implant and graft; Z86.73 Personal history of transient ischemic attack (TIA), and cerebral infarction without residual deficits; Z79.01 Long term (current) use of anticoagulants; Z79.82 Long term (current) use of aspirin; Z79.890 Hormone replacement therapy; Z79.899 Other long term (current) drug therapy; Z88.6 Allergy status to analgesic agent; Z20.822 Contact with and (suspected) exposure to COVID-19; Z85.46 Personal history of malignant neoplasm of prostate; Z92.3 Personal history of irradiation

== ENCOUNTER → 2023-01-15 | Outpatient (CLI) | payer MEDICARE ==
[~2023-01-15] MED LIST changes: +ACET-897 PO; +AMIO400T2 PO; -AMIO400T7 PO; +MIRA1POW3 PO; +NAPR500T6 PO; +SENN-52 PO
== END ==
LOC: M SOG 07:53
PROVIDERS: ATTEND Orthopaedic Surgery
DX: S72.002D Fracture of unspecified part of neck of left femur, subsequent encounter for closed fracture with routine healing (principal); W18.30XD Fall on same level, unspecified, subsequent encounter

== ENCOUNTER → 2023-01-24 | Outpatient (REF) | payer MEDICARE ==
[2023-01-24 14:01] LABS: BASO % 0.5 % (0.0-1.0); EOS # 0.3 10^3/uL (0.0-0.5); EOS % 3.3 % (0.0-3.0); HEMOGLOBIN 13.1 g/dl (13.5-17.5); LYMPH # 1.5 10^3/uL (1.5-5.0); LYMPH % 17.5 % (24.0-44.0); MEAN CORPUSCULAR HEMOGLOBIN 28.4 pg (27.0-33.0); MEAN CORPUSCULAR HGB CONC 31.2 g/dl (32.0-36.5); MEAN CORPUSCULAR VOLUME 91.1 fl (80.0-96.0); MONO # 0.8 10^3/uL (0.0-0.8); MONO % 9.5 % (2.0-8.0); NEUTROPHILS # 5.9 10^3/uL (1.5-8.5); NEUTROPHILS % 68.6 % (36.0-66.0); PLATELET COUNT, AUTOMATED 371 10^3/uL (150-450); RED BLOOD COUNT 4.61 10^6/uL (4.30-6.10); WHITE BLOOD COUNT 8.5 10^3/uL (4.0-10.0)
[2023-01-24 14:33] LABS: ALBUMIN 3.6 G/DL (3.2-5.2); ALKALINE PHOSPHATASE 96 U/L (46-116); ALT/SGPT 42 U/L (7.0-40); AST/SGOT 36 U/L (<34); BILIRUBIN,TOTAL 0.4 MG/DL (0.3-1.2); BLOOD UREA NITROGEN 16 MG/DL (9-23); CALCIUM LEVEL 9.2 MG/DL (8.3-10.6); CARBON DIOXIDE LEVEL 28 MMOL/L (20-31); CHLORIDE LEVEL 103 MMOL/L (98-107); CHOLESTEROL LEVEL 140 MG/DL (<200); CREATININE FOR GFR 1.19 MG/DL (0.70-1.30); FERRITIN 46.3 NG/ML (10.5-307.3); GLOMERULAR FILTRATION RATE > 60.0 (>42); GLUCOSE, FASTING 107 MG/DL (74-106); HDL CHOLESTEROL 63.6 MG/DL (>40); IRON (FE) 33 UG/DL (65-175); LDL CHOLESTEROL 56.2 MG/DL (<100); NON-HDL-C 76.4 MG/DL; PERCENT SATURATION 8.6 % (19.7-50.0); POTASSIUM SERUM 4.1 MMOL/L (3.5-5.1); SODIUM LEVEL 140 MMOL/L (136-145); TOTAL IRON BINDING CAPACITY 382 UG/DL (250-425); TOTAL PROTEIN 6.9 G/DL (5.7-8.2); TRIGLYCERIDES LEVEL 101 MG/DL (<150)
== END ==
LOC: M SFHCADAM 09:55
PROVIDERS: ATTEND Physician Assistant
DX: I48.91 Unspecified atrial fibrillation (principal); I10 Essential (primary) hypertension; I63.439 Cerebral infarction due to embolism of unspecified posterior cerebral artery; D50.9 Iron deficiency anemia, unspecified; Z85.46 Personal history of malignant neoplasm of prostate
CPT/HCPCS: 80053; 80061; 82728; 83550; 85025; G0103

== ENCOUNTER → 2023-02-26 | Outpatient (CLI) | payer MEDICARE | LOC: M SOG 07:58 | PROVIDERS: ATTEND Orthopaedic Surgery | DX: S72.002D Fracture of unspecified part of neck of left femur, subsequent encounter for closed fracture with routine healing (principal) ==

== ENCOUNTER → 2023-09-26 | Outpatient (CLI) | payer MEDICARE, OTHER ==
[~2023-09-26] MED LIST changes: -MIRA1POW3 PO; +MIRA33506 PO
== END ==
LOC: M SOG 10:59
PROVIDERS: ATTEND Orthopaedic Surgery
DX: S72.002D Fracture of unspecified part of neck of left femur, subsequent encounter for closed fracture with routine healing (principal)

== ENCOUNTER → 2023-10-01 | Outpatient (REF) | payer MEDICARE, OTHER ==
[2023-10-01 17:37] LABS: BASO # 0.1 10^3/uL (0.0-0.2); BASO % 0.7 % (0.0-1.0); EOS # 0.3 10^3/uL (0.0-0.5); EOS % 3.9 % (0.0-3.0); HEMATOCRIT 39.2 % (42.0-52.0); HEMOGLOBIN 11.9 g/dl (13.5-17.5); LYMPH # 1.4 10^3/uL (1.5-5.0); LYMPH % 18.7 % (24.0-44.0); MEAN CORPUSCULAR HEMOGLOBIN 25.8 pg (27.0-33.0); MEAN CORPUSCULAR HGB CONC 30.4 g/dl (32.0-36.5); MONO # 0.7 10^3/uL (0.0-0.8); MONO % 9.2 % (2.0-8.0); NEUTROPHILS # 5.1 10^3/uL (1.5-8.5); NEUTROPHILS % 67.2 % (36.0-66.0); PLATELET COUNT, AUTOMATED 308 10^3/uL (150-450); RED BLOOD COUNT 4.61 10^6/uL (4.30-6.10); WHITE BLOOD COUNT 7.6 10^3/uL (4.0-10.0)
[2023-10-01 17:46] LABS: ERYTHROCYTE SEDIMENTATION RATE 13 mm/hr (0-20)
== END ==
LOC: M LABDRAWP 16:49
PROVIDERS: ATTEND Orthopaedic Surgery
DX: Z96.642 Presence of left artificial hip joint (principal)

== ENCOUNTER → 2023-10-29 | Outpatient (CLI) | payer OTHER, MEDICARE ==
[2023-10-29 15:53] LABS: BASO % 0.5 % (0.0-1.0); EOS # 0.2 10^3/uL (0.0-0.5); EOS % 2.7 % (0.0-3.0); HEMATOCRIT 36.1 % (42.0-52.0); HEMOGLOBIN 11.3 g/dl (13.5-17.5); LYMPH # 1.2 10^3/uL (1.5-5.0); MEAN CORPUSCULAR HEMOGLOBIN 26.2 pg (27.0-33.0); MEAN CORPUSCULAR HGB CONC 31.3 g/dl (32.0-36.5); MEAN CORPUSCULAR VOLUME 83.8 fl (80.0-96.0); MONO # 0.6 10^3/uL (0.0-0.8); NEUTROPHILS # 4.1 10^3/uL (1.5-8.5); NEUTROPHILS % 66.6 % (36.0-66.0); PLATELET COUNT, AUTOMATED 234 10^3/uL (150-450); RED BLOOD COUNT 4.31 10^6/uL (4.30-6.10); WHITE BLOOD COUNT 6.2 10^3/uL (4.0-10.0)
[2023-10-29 16:28] LABS: ERYTHROCYTE SEDIMENTATION RATE 11 mm/hr (0-20)
== END ==
LOC: M PLALAB 14:19
PROVIDERS: ATTEND Orthopaedic Surgery
DX: Z96.642 Presence of left artificial hip joint (principal)

== ENCOUNTER → 2023-10-29 | Outpatient (CLI) | payer OTHER, MEDICARE | LOC: M SOG 13:47 | PROVIDERS: ATTEND Orthopaedic Surgery | DX: M25.552 Pain in left hip (principal) ==

== ENCOUNTER → 2023-11-01 | Outpatient (REF) | payer OTHER, MEDICARE ==
[2023-11-01 13:22] LABS: PERCENT SATURATION 7.8 % (19.7-50.0); PHOSPHORUS LEVEL 2.6 MG/DL (2.4-5.1)
[2023-11-01 13:24] LABS: FERRITIN 11.5 NG/ML (10.5-307.3); FOLATE 12.2 NG/ML (>5.4); TOTAL 25(OH) VITAMIN D 30.1 NG/ML (20.0-100.0)
== END ==
LOC: M LAB REF 12:18
PROVIDERS: ATTEND Internal Medicine
DX: Z98.84 Bariatric surgery status (principal); D50.9 Iron deficiency anemia, unspecified

== ENCOUNTER → 2023-11-15 | Outpatient (CLI) | payer MEDICARE, OTHER ==
[~2023-11-15] MED LIST changes: +ISOVUE-300 61% 100ML VIAL As Ordered ONE; +LIDOCAINE 1% MDV 20ML VIAL As Ordered ONE
[2023-11-15 14:49] LABS: SOURCE, BODY FLUID LT HIP; SYNOVIAL FLUID COLOR YELLOW (COLORLESS)
[2023-11-15 15:03] LABS: CRYSTALS, BODY FLUID NONE SEEN (NONE SEEN); SOURCE, BODY FLUID CRYSTALS LEFT HIP
== END ==
LOC: M RAD 13:04
PROVIDERS: ATTEND Orthopaedic Surgery
DX: M25.552 Pain in left hip (principal)

== ENCOUNTER 2023-11-22 18:58 | Emergency (ER) | payer MEDICARE, OTHER ==
[~2023-11-22] VITALS: Ht 175.3 cm; Wt 94.7 kg
[~2023-11-22 18:58] MED LIST changes: -ISOVUE-300 61% 100ML VIAL As Ordered ONE; -LIDOCAINE 1% MDV 20ML VIAL As Ordered ONE
[2023-11-22 18:59] VITALS: TEMP 98
[2023-11-22 19:56] LABS: BASO % 0.5 % (0.0-1.0); EOS # 0.1 10^3/uL (0.0-0.5); HEMATOCRIT 41.3 % (42.0-52.0); HEMOGLOBIN 12.9 g/dl (13.5-17.5); LYMPH # 1.4 10^3/uL (1.5-5.0); LYMPH % 16.6 % (24.0-44.0); MEAN CORPUSCULAR HEMOGLOBIN 26.4 pg (27.0-33.0); MEAN CORPUSCULAR HGB CONC 31.2 g/dl (32.0-36.5); MEAN CORPUSCULAR VOLUME 84.5 fl (80.0-96.0); MONO # 0.8 10^3/uL (0.0-0.8); NEUTROPHILS # 6.2 10^3/uL (1.5-8.5); NEUTROPHILS % 72.6 % (36.0-66.0); PLATELET COUNT, AUTOMATED 286 10^3/uL (150-450); RED BLOOD COUNT 4.89 10^6/uL (4.30-6.10); WHITE BLOOD COUNT 8.6 10^3/uL (4.0-10.0)
[2023-11-22 20:31] LABS: BLOOD UREA NITROGEN 23 MG/DL (9-23); CALCIUM LEVEL 9.2 MG/DL (8.3-10.6); CARBON DIOXIDE LEVEL 28 MMOL/L (20-31); CHLORIDE LEVEL 104 MMOL/L (98-107); CREATININE FOR GFR 1.24 MG/DL (0.70-1.30); GLOMERULAR FILTRATION RATE > 60.0 (>42); GLUCOSE, FASTING 103 MG/DL (74-106); POTASSIUM SERUM 4.7 MMOL/L (3.5-5.1); SODIUM LEVEL 138 MMOL/L (136-145)
[2023-11-22 20:35] LABS: CPK CREATINE PHOSPHOKINASE 77 U/L (46-171); MB/CK RELATIVE INDEX 2.59 (< OR =4)
[2023-11-22 20:54] LABS: CK-MB VALUE MASS 1.3 NG/ML (<3.6)
[2023-11-22] MEDS: ACETAMINOPHEN *IV* 1,000 MG in IV 1 EA IV ONE (21:08)
[2023-11-22 21:10] LABS: LIPASE 19 U/L (12-53)
[2023-11-22 21:12] LABS: ALBUMIN 4.1 G/DL (3.2-5.2); ALKALINE PHOSPHATASE 90 U/L (46-116); ALT/SGPT 37 U/L (7.0-40); AST/SGOT 27 U/L (<34); BILIRUBIN,DIRECT 0.1 MG/DL (<0.4); BILIRUBIN,TOTAL 0.4 MG/DL (0.3-1.2); TOTAL PROTEIN 7.3 G/DL (5.7-8.2)
[2023-11-22 21:46] VITALS: BP 179/84
[2023-11-22 22:00] VITALS: O2SAT 98
== END 2023-11-22 22:09 | disposition home or self-care (01) ==
LOC: M ED 18:58
DX: R07.9 Chest pain, unspecified (principal); K21.9 Gastro-esophageal reflux disease without esophagitis; I10 Essential (primary) hypertension; E78.5 Hyperlipidemia, unspecified; C61 Malignant neoplasm of prostate; F10.10 Alcohol abuse, uncomplicated; Z86.79 Personal history of other diseases of the circulatory system; Z98.84 Bariatric surgery status; Z88.6 Allergy status to analgesic agent; Z79.01 Long term (current) use of anticoagulants; Z79.82 Long term (current) use of aspirin; Z79.899 Other long term (current) drug therapy
CPT/HCPCS: 71045; 80048; 80076; 82550; 82553; 83690; 84484; 85025; 85379; 93005; 93041; 94760; 96365; 99285; G0463; J0131

== ENCOUNTER 2024-02-21 11:55 | Inpatient (IN) | payer OTHER ==
[~2024-02-21] VITALS: Ht 175.3 cm; Wt 93.5 kg
[2024-02-21] MEDS ORDERED: ISOVUE-370 76% 100ML VIAL As Ordered ONE (12:06)
[2024-02-21 12:45] LABS: BASO % 0.4 % (0.0-1.0); EOS # 0.2 10^3/uL (0.0-0.5); EOS % 3.2 % (0.0-3.0); HEMATOCRIT 47.5 % (42.0-52.0); HEMOGLOBIN 15.4 g/dl (13.5-17.5); LYMPH # 2.2 10^3/uL (1.5-5.0); LYMPH % 30.8 % (24.0-44.0); MEAN CORPUSCULAR HGB CONC 32.4 g/dl (32.0-36.5); MEAN CORPUSCULAR VOLUME 92.6 fl (80.0-96.0); MONO # 0.6 10^3/uL (0.0-0.8); MONO % 8.5 % (2.0-8.0); NEUTROPHILS # 4.1 10^3/uL (1.5-8.5); NEUTROPHILS % 56.7 % (36.0-66.0); PLATELET COUNT, AUTOMATED 251 10^3/uL (150-450); RED BLOOD COUNT 5.13 10^6/uL (4.30-6.10); WHITE BLOOD COUNT 7.2 10^3/uL (4.0-10.0)
[2024-02-21 13:07] LABS: BLOOD UREA NITROGEN 14 MG/DL (9-23); CARBON DIOXIDE LEVEL 30 MMOL/L (20-31); CHLORIDE LEVEL 109 MMOL/L (98-107); GLOMERULAR FILTRATION RATE > 60.0 (>42); GLUCOSE, FASTING 81 MG/DL (74-106); INR 1.22; PARTIAL THROMBOPLASTIN TIME 31.3 SECONDS (24.8-34.2); POTASSIUM SERUM 4.4 MMOL/L (3.5-5.1); PROTHROMBIN TIME 15.1 SECONDS (12.5-14.5); SODIUM LEVEL 142 MMOL/L (136-145)
[2024-02-21] MEDS ORDERED: METO1TAB32 PO (14:09)
[2024-02-21] MEDS ORDERED: ASPIRIN 81MG ENTERIC TABLET PO SCH (14:10)
[2024-02-21] MEDS ORDERED: MIRT1TAB PO (14:12)
[2024-02-21] MEDS ORDERED: TRAM50TA2 PO (14:12)
[2024-02-21] MEDS ORDERED: IRON1TAB2 PO (14:12)
[2024-02-21] MEDS ORDERED: AMLO1TAB24 PO (14:17)
[2024-02-21] MEDS ORDERED: ASPI81TA26 PO (14:17)
[2024-02-21] MEDS ORDERED: HOME MED LIST COMPLETE! XX SCH (14:20)
[2024-02-21] MEDS ORDERED: carisoprodoL 350 MG TAB PO PRN (14:40)
[2024-02-21 14:58] LABS: VITAMIN B12 LEVEL 382 PG/ML (211-911)
[2024-02-21 14:59] LABS: THYROID STIMULATING HORMONE 1.872 uIU/ML (0.55-4.78)
[2024-02-21 16:08] LABS: HEMOGLOBIN A1c 5.6 % (4.0-6.0)
[2024-02-21] MEDS ORDERED: hydrALAZINE 20MG/ML 1ML VIAL IV PRN (17:50)
[2024-02-21 18:13] VITALS: BP 155/70; TEMP 97.3; O2SAT 98
[2024-02-21] MEDS: traMADol 50 MG TAB PO PRN (19:47)
[2024-02-21] MEDS: MIRTAZAPINE 7.5MG PER 1/2 TABLET PO SCH (20:15)
[2024-02-21] MEDS: APIXABAN 5 MG TAB (ELIQUIS) PO SCH (20:15)
[2024-02-21] MEDS: ROSUVASTATIN 10 MG TAB (CRESTOR) PO SCH (20:16)
[2024-02-21 20:42] VITALS: BP 148/78; TEMP 97.6; O2SAT 99
[2024-02-22] MEDS: ACETAMINOPHEN TAB 650MG DOSE (2X325MG) PO PRN (00:04)
[2024-02-22 05:54] VITALS: BP 116/65; TEMP 99.2; O2SAT 98
[2024-02-22] MEDS: LEVOTHYROXINE 150MCG TABLET (0.15MG) PO SCH (06:28)
[2024-02-22 06:53] LABS: HEMATOCRIT 42.8 % (42.0-52.0); HEMOGLOBIN 14.2 g/dl (13.5-17.5); MEAN CORPUSCULAR HEMOGLOBIN 30.2 pg (27.0-33.0); MEAN CORPUSCULAR HGB CONC 33.2 g/dl (32.0-36.5); MEAN CORPUSCULAR VOLUME 91.1 fl (80.0-96.0); PLATELET COUNT, AUTOMATED 222 10^3/uL (150-450); WHITE BLOOD COUNT 6.2 10^3/uL (4.0-10.0)
[2024-02-22 07:19] LABS: CALCIUM LEVEL 9.5 MG/DL (8.3-10.6); CHOLESTEROL RISK RATIO 2.05 (<5); CREATININE FOR GFR 1.27 MG/DL (0.70-1.30); GLOMERULAR FILTRATION RATE 58.2 (>42); LDL CHOLESTEROL 41.8 MG/DL (<100); POTASSIUM SERUM 4.1 MMOL/L (3.5-5.1)
[2024-02-22 07:34] VITALS: BP 140/75; TEMP 98.2; O2SAT 97
[2024-02-22] MEDS ORDERED: METOPROLOL SUCC *XL* 25MG TAB (TopROL *XL*) PO SCH (09:00)
[2024-02-22] MEDS ORDERED: ASPIRIN 81MG ENTERIC TABLET PO SCH (09:00)
[2024-02-22] MEDS: CLOPIDOGREL 75 MG TAB PO SCH (09:39)
[2024-02-22] MEDS: LIDOCAINE 5% (LIDODERM) PATCH TOP SCH (09:39)
[2024-02-22] MEDS: PANTOPRAZOLE 40MG TAB (PROTONIX) PO SCH (09:39)
[2024-02-22] MEDS: FERROUS SULFATE 325MG TAB PO SCH (09:39)
[2024-02-22] MEDS: FINASTERIDE 5MG TAB PO SCH (09:39)
[2024-02-22 11:21] VITALS: BP 136/72; TEMP 97; O2SAT 98
[2024-02-22] MEDS ORDERED: CLOP75TA2 PO (12:07)
== END 2024-02-22 14:57 | disposition home or self-care (01) | DRG 65 ==
LOC: M ED 11:55 → M ED INP 14:09 → OBSVTOIN 17:48 → M PCU 18:11
PROVIDERS: ADMIT Internal Medicine; ATTEND Internal Medicine
PROC: B246ZZZ Ultrasonography of Right and Left Heart (ICD-10-PCS; principal; 2024-02-22)
DX: I63.9 Cerebral infarction, unspecified (principal); I48.11 Longstanding persistent atrial fibrillation; R47.01 Aphasia; I25.10 Atherosclerotic heart disease of native coronary artery without angina pectoris; Z95.1 Presence of aortocoronary bypass graft; F03.A0 Unspecified dementia, mild, without behavioral disturbance, psychotic disturbance, mood disturbance, and anxiety; I10 Essential (primary) hypertension; N40.0 Benign prostatic hyperplasia without lower urinary tract symptoms; E03.9 Hypothyroidism, unspecified; K21.9 Gastro-esophageal reflux disease without esophagitis; F32.A Depression, unspecified; G89.29 Other chronic pain; Z85.46 Personal history of malignant neoplasm of prostate; E78.5 Hyperlipidemia, unspecified; Z92.3 Personal history of irradiation; E66.01 Morbid (severe) obesity due to excess calories; Z90.49 Acquired absence of other specified parts of digestive tract; Z98.84 Bariatric surgery status; Z96.642 Presence of left artificial hip joint; Z79.01 Long term (current) use of anticoagulants; Z79.899 Other long term (current) drug therapy; Z79.02 Long term (current) use of antithrombotics/antiplatelets; Z88.6 Allergy status to analgesic agent

== ENCOUNTER → 2024-09-22 | Outpatient (REF) | payer OTHER ==
[~2024-09-22] MED LIST changes: +CLOP75TA2 PO; +IRON1TAB2 PO; +METO1TAB32 PO; +MIRT1TAB PO; +NAPR-1405 PO; -NAPR500T6 PO; +TRAM50TA2 PO
[2024-09-22 15:16] LABS: PERCENT SATURATION 25.4 % (19.7-50.0)
[2024-09-22 15:19] LABS: FERRITIN 67.2 NG/ML (10.5-307.3)
== END ==
LOC: M LAB REF 14:02
PROVIDERS: ATTEND Internal Medicine
DX: D50.9 Iron deficiency anemia, unspecified (principal)

== ENCOUNTER → 2024-12-18 | Outpatient (REF) | payer MEDICARE ==
[~2024-12-18] MED LIST changes: -AMIO200T49 PO; +AMIO200T54 PO; -FLOM0.4C39 PO; +LIDO1ADH93 TD; -LIDO5DIS41 TD; +TAMS-18 PO
== END ==
LOC: M LAB REF 12:35
PROVIDERS: ATTEND Internal Medicine
DX: R19.7 Diarrhea, unspecified (principal)

== ENCOUNTER 2025-01-22 10:16 | Day surgery (SDC) | payer MEDICARE ==
[~2025-01-22] VITALS: Ht 175.3 cm; Wt 90.7 kg
[~2025-01-22 10:16] MED LIST changes: +DIVA250T67 PO; +EZET10TA21 PO; +MEMA1TAB3 PO
[2025-01-22 12:34] VITALS: TEMP 98.6
[2025-01-22] MEDS ORDERED: PHENYLephrine 500MCG 5ML (100MCG/ML) SYRINGE As Ordered ONE (12:37)
[2025-01-22 13:04] VITALS: BP 162/72; O2SAT 98
== END 2025-01-22 13:13 | disposition home or self-care (01) ==
LOC: M OPP 10:16
PROVIDERS: ATTEND Surgery
DX: D12.6 Benign neoplasm of colon, unspecified (principal); K55.20 Angiodysplasia of colon without hemorrhage; K52.9 Noninfective gastroenteritis and colitis, unspecified; K62.5 Hemorrhage of anus and rectum; D50.9 Iron deficiency anemia, unspecified; Z98.84 Bariatric surgery status; I48.91 Unspecified atrial fibrillation; Z95.5 Presence of coronary angioplasty implant and graft; Z86.73 Personal history of transient ischemic attack (TIA), and cerebral infarction without residual deficits; G47.30 Sleep apnea, unspecified; Z88.8 Allergy status to other drugs, medicaments and biological substances; Z79.01 Long term (current) use of anticoagulants; Z79.891 Long term (current) use of opiate analgesic; Z79.899 Other long term (current) drug therapy
CPT/HCPCS: 43235; 45380; 45382; 45385; 88305; J2371